=== PATIENT | female | born 1935 | race Caucasian/White ===

== ENCOUNTER → 2017-01-25 | Outpatient (CLI) | payer OTHER, BC ==
--- NOTE | 2017-01-25 11:17 | NOWCEV ---
[facility] EVALUATION AND LETTER OF JUSTIFICATION Patient Name: LUCAS AVALOS Physician: MD Jose Romeo Date: 01/25/17 Therapist: Stella Morales MS,PT Date of : 1935 MR#: [id number] Contact: Subscriber: LUCAS AVALOS Primary Ins: MEDICARE OUTPATIENT Subscriber #: [id number] EVALUATION FINDINGS Medical history - Lucas is an 81y/o female who sustained a T3 incomplete SCI in 1978. 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 Her current MWC is about 10 y/o and is showing age related deterioration. Lucas was referred to this clinic to have recommendations made for the most medically appropriate MWC to meet her needs and to maximize function in her home. Functional Mobility - Lucas is independent to self propel her current [facility] [place] [facility] household distances. She relies on her to push her in her MWC longer distances to the the dining room in the assisted living facility in which they reside. She transfers utilizing a stand pivot strategy with B AFOs donned. She relies heavily on the arms rests of her chair for support and demonstrates poor eccentric control. Lucas is independent with supine to/from sit transitions and rolling. When she lays supine, it takes several minutes for her LLE to relax into fully extension due to increased tone in her L hip flexor. She can ambulate very short distances with a rw, B AFOs and close guard. Her gait has significant B Trendelenburg, B recurvatum and narrow ABELARDO. She primarily weight bears throughout her UEs on the rw. She does not walk functionally, only for exercise. Head/Trunk control - Lucas's head control is WNL. She is able to reach ~2" outside her ABELARDO in unsupported sitting. Motor involvement - Kaileys LLE was more greatly impacted by her SCI than her RLE. MMT is as follows: DF L: 3-/5, R: 3+/5, eversion L: 0/5, R: 4-/5, knee extension L: 3/5, R: 4/5, hip flexion B: 3-/5, hip abduction L: 2-/5, R: 2/5. She has significant tightness in her L adductor and internal rotators. Her hamstring length is greatly restricted, passive supine knee extension measured from 90 degrees hip flexion is gross 95-100 degrees L and 105 degrees R. Lucas 's UE strength is 4-/5 into B shoulder flexion, shoulder abduction and elbow extension. Elbow flexion is 4/5. She does have some spasticity in her L hip flexor. Posture - Lucas sits with a pelvic obliquity in which her L iliac crest is lower than her R and she leans to the L despite padding that was added to her current seat cushion several years back. Her LLE is adducted and internally rotated. She sits with rounded shoulders and has a reduction of normal thoracic and lumbar curves from spinal surgeries. Skin Sensation - Lucas's sensation is diminished to light touch and proprioception below her level of injury at T3. She does not have any h/o skin breakdown as she weight shifts and performs pressure relief regularly. Endurance - Lucas can be in her chair for >8 hours /day. With the current set up of her chair, she can only self propel short household distances and relies on her to propel distance to the dinning room in their assisted living facility. ADLs - Lucas relies on her for activities such as dressing and bathing. She performs activities such as washing and brushing her teeth from a wheelchair level. Cognitive/Social - Lucas lives with her in a wheelchair accessible assisted living facility. She is fully cognizant and able to make her own medical decisions. To attend medical appointments, Lucas's lifts her current MWC into the car. Current wheelchair - Lucas's current MWC (zoomsquareezy 600) is about 10 y/o and is deteriorating from constant daily use. She feels the frame now "wobbles " when she propels. She is currently utilizing a veralite cushion and matrx backrest. Her current cushion is visibly worn and is not providing her with the postural support she needs, causing her to lean to the L when she sits in her chair. MEDICAL and FUNCTIONAL NEED/OBJECTIVES * To replace Lucas's current MWC and seating system which is deteriorating from use, in order to ensure safe and consistent mobility in the home. PRIMARY FUNCTIONAL LIMITATION (G Code) * Mobility CURRENT STATUS OF PRIMARY FUNCTIONAL LIMITATION (Severity Modifier) * At least 40 percent but less than 60 percent impaired, limited or restricted ( CK) GOAL STATUS OF PRIMARY FUNCTIONAL LIMITATION (Severity Modifier) * At least 40 percent but less than 60 percent impaired, limited or restricted ( CK) DISCHARGE STATUS OF PRIMARY FUNCTIONAL LIMITATION (Severity Modifier) * At least 40 percent but less than 60 percent impaired, limited or restricted ( CK) EQUIPMENT RECOMMENDATIONS AND JUSTIFICATIONS The following recommendations are believed to be the most cost effective way to meet the patients medical and functional needs. * Ultra light weight folding frame MWC: Needed to replace Lucas's current MWC which is 10years old and showing age related deterioration. An ultra light weight frame is necessary, because it will allow Lucas to continue to self propel her chair as she ages both on level surfaces and ramps within her home. A platform builder chair will also allow her to be more independent, as she will be able to self propel to the dining room in her assisted living facility without requiring caregiver assistance to push her. Additionally, a platform builder chair will allow Lucas's /caregiver, who is also aging, with the ability to lift her MWC in/out of the car to attend medical appointments with decreased risk of injury. Lucas is unable to walk to perform functional tasks or ADLs even with an AD. With a standard weight chair, Lucas will be unable to self propel distances within her home or to the dining area in her assisted living facility and will be unable to self propel up ramps. Therefore an ultra light weight chair is warranted. * Skin protection positioning cushion (Veralite): Needed to provide Lucas with appropriate pressure relief and distribution as she spends long periods of time in her chair throughout the day. Additionally it is required to correct for Lucas's pelvic obliquity which causes her to sit with a L lateral lean if not compensated for This will improve her ability to independently self propel her MWC within the assisted living facility where she resides. An off the shelf cushion will not be able to accommodate her pelvic obliquity or provide her with the postural stability required to propel. * Posterior positioning backrest (Matrx): Needed to provide Lucas with postural support and control to maximize her ability to self propel. It will work in conjunction with her custom cushion to provide pressure relief. * Airless tire inserts: Needed as Lucas is unable to perform maintenance on chair, such as filling tires or changing flat tires, due to her physical limitations. * Push to lock brakes: Needed for easy access to brakes so Lucas can independently secure her chair prior to transferring and performing ADLs from a wheelchair level. * Anti-tippers: Needed to provide safety to prevent Lucas's chair from flipping over backward when propelling up ramps or performing ADLs. * Heel loops: Needed to maintain the positioning of Lucas's feet and LEs on the foot plates, and to ensure safety and stability when self propelling as she does not have the LE strength to maintain this position independently. * Height adjustable arm rests: The elevated height of the arm rest is needed to improve Lucas's leverage and stability when completing transfers. These recommendations are based on the likelihood that Lucas will require the use of a wheelchair for mobility for the rest of her life. If you have any questions or concerns regarding the stated recommendations, please feel free to contact the therapist at . Thank you for your cooperation in obtaining the necessary equipment for this patient. FIORELLA Herrera
== END ==
PROVIDERS: ATTEND Internal Medicine
DX: Z46.89 Encounter for fitting and adjustment of other specified devices (principal); G82.22 Paraplegia, incomplete
CPT/HCPCS: 97162; G8978; G8979; G8980

== ENCOUNTER 2019-02-02 14:53 | Emergency (ER) | payer OTHER, BC ==
--- NOTE | 2019-02-02 15:19 | EDPHY ---
H & P Stated Complaint: rectal bleeding Time Seen by Provider: 02/02/19 15:19 - Personal History Current Tetanus/Diphtheria Vaccine: Unsure Current Tetanus Diphtheria and Acellular Pertussis (TDAP): Unsure Tetanus Vaccine Date: 8 years ago - Medical/Surgical History Hx Asthma: No Hx Chronic Respiratory Disease: No Hx Diabetes: No Hx Cardiac Disease: No Hx Renal Disease: No Hx Cirrhosis: No Hx Alcoholism: No Hx HIV/AIDS: No Hx Splenectomy or Spleen Trauma: No Other PMH: Medical- Partial paraplegia (traumatic), GERD. Surgical- Back surg w /hardware.VTE 5 years ago - Social History Smoking Status: Never smoked Constitutional: Initial Vital Signs Temperature (C) 36.7 C 02/02/19 14:59 Heart Rate 78 02/02/19 14:59 Respiratory Rate 16 02/02/19 14:59 Blood Pressure 165/73 H 02/02/19 14:59 O2 Sat (%) 96 02/02/19 14:59 O2 Delivery Mode Room Air Allergies/Adverse Reactions: Sulfa (Sulfonamide Antibiotics) Allergy (Severe, Verified 02/02/19 14:58) Rash Home Medications: Medication Instructions Recorded Bisacodyl [Dulcolax Rectal (OTC)] 10 mg HI DAILY PRN 11/05/13 Magnesium Hydroxide [Milk of 30 ml PO DAILY PRN 11/05/13 Magnesia (OTC)] Multivitamins [Tab-A-Fara] 1 tab PO DAILY 11/05/13 Rabeprazole Sodium [Aciphex] 20 mg PO HS 11/05/13 Sennosides/Docusate Sodium 1 - 2 tab PO BID 11/05/13 [Senokot-S Tablet] Acetaminophen [Tylenol Tablet] 650 mg PO Q4 PRN 11/27/13 Hydrocodone/APAP 5/325 [[place] 1 - 2 tab PO Q4 11/27/13 5/325 (RX)] Mag Hydrox/Al Hydrox/Simeth 30 ml PO Q6 PRN 11/27/13 [Maalox Susp] Polyethylene Glycol 3350 [Miralax 17 gm PO DAILY PRN 11/27/13 17 gm (OTC)] Warfarin Sodium [Coumadin 1MG (RX)] 1 mg PO DAILY16 11/27/13 guaiFENesin [Robitussin 200 MG 200 mg PO Q4PRN PRN 11/27/13 (OTC)] Medical Decision Making ED Course/Re-evaluation: CHIEF COMPLAINT: Rectal bleeding HISTORY OF PRESENT ILLNESS: The patient is an anticoagulated (Coumadin) 83 y/o female with a history of partial paraplegia and hemorrhoids complaining of bright red rectal bleeding. Several months ago she started taking Miralax frequently, which has caused irregular and soft bowel movements. Today she developed the bright red rectal bleeding that was present when she was taking a bowel movement today. No fever, headache, body aches, lightheadedness, chest pain, heart palpitations, shortness of breath, cough, abdominal pain, urinary complaints, paresthesias. REVIEW OF SYSTEMS: A comprehensive 10 system review of systems is otherwise negative aside from elements mentioned in the history of present illness and medical decision making. PHYSICAL EXAM: HR, BP, O2 Sat, RR. Temp noted General Appearance: Alert, well hydrated, appropriate, and non-toxic appearing. Head: Atraumatic without scalp tenderness or obvious injury Eyes: Pupils equal, round, reactive to light and accommodation, EOMI, no trauma , no injection. Ears: Clear bilaterally, no perforation, normal landmarks Nose: Atraumatic, no rhinorrhea, clear. Throat: There is no erythema or exudates, no lesions, normal tonsils, mucus membranes moist. Neck: Supple, 2+ carotid upstroke, nontender, no lymphadenopathy. Respiratory: No retractions, no distress, no wheezes, and no accessory muscle use. Lungs are clear to auscultation bilaterally. Cardiovascular: Regular rate and rhythm, no murmurs, rubs, or gallops. Bilateral carotid, radial, dorsalis pedis, and posterior tibial pulses intact. Good capillary refill all extremities. Gastrointestinal: Abdomen is soft, nontender, non-distended, no masses, no rebound, no guarding, no peritoneal signs. Rectal: Many skin tags and hemorrhoids. No gush of blood. Musculoskeletal: Normal active ROM of all extremities, atraumatic. Neurological: Alert, appropriate, and interactive. The patient has normal DTRs and non-focal cranial nerves, motor, sensory, and cerebellar exam. Skin: No rashes, good turgor, no nodules on palpation. Past medical history: Partial paraplegia (traumatic), GERD, frequent UTI's, hemorrhoids, DVT's (on Coumadin) Past surgical history: Back surgery w/hardware, VTE 5 years ago Family history: Not indicated. Social history: Lives in [place], , retired DIAGNOSTICS/PROCEDURES/CRITICAL CARE TIME: Not indicated. DIFFERENTIAL DIAGNOSIS: The differential diagnosis for the patient's lower GI bleeding included but was not limited to diverticulosis, tumor, AVM, hemorrhoid, and upper GI Bleed. MEDICAL DECISION MAKING: The patient is an anticoagulated (Coumadin) 83 y/o female with a history of partial paraplegia and hemorrhoids presenting of bright red rectal bleeding. Several months ago she started taking Miralax frequently, which has caused irregular and soft bowel movements. Today she developed the bright red rectal bleeding that was present even when she wasn't taking a bowel movement. No fever , headache, body aches, lightheadedness, chest pain, heart palpitations, 1622: Patient's labs are unremarkable. 1624: Reassessed patient and discussed laboratory findings. I have advised her to follow up with a manager engagement and use OTC Anusol cream. Return precautions provided; patient is comfortable with this plan. - Data Points Laboratory Results: Laboratory Results 02/02/19 15:45 02/02/19 15:45 02/02/19 02/02/19 02/02/19 15:51 15:45 15:45 WBC RBC Hgb POC Hgb 14.6 gm/dL gm/dL (12.6-16.3) Hct POC Hct 43 % % (38-47) MCV MCH MCHC RDW Plt Count MPV Neut % (Auto) Lymph % (Auto) Placer % (Auto) Eos % (Auto) Baso % (Auto) Nucleat RBC Rel Count Absolute Neuts (auto) Absolute Lymphs (auto) Absolute Monos (auto) Absolute Eos (auto) Absolute Basos (auto) Absolute Nucleated RBC Immature Gran % Immature Gran # PT 23.7 SEC H SEC (12.0-15.0) INR 2.24 H (0.83-1.16) APTT 31.7 SEC SEC (23.0-38.0) POC Sodium 135 mEq/L mEq/L (135-145) Sodium 133 mEq/L L mEq/L (135-145) POC Potassium 4.4 mEq/L mEq/L (3.3-5.0) Potassium 4.3 mEq/L mEq/L (3.5-5.2) POC Chloride 97 mEq/L mEq/L (97-110) Chloride 97 mEq/L mEq/L (97-110) Carbon Dioxide 26 mEq/l mEq/l (22-31) POC Total CO2 28 mEq/L mEq/L (22-31) Anion Gap 10 mEq/L mEq/L (6-14) POC BUN 10 mg/dL mg/dL (7-23) BUN 12 mg/dL mg/dL (7-23) Creatinine 0.8 mg/dL mg/dL (0.6-1.0) POC Creatinine 0.8 mg/dL mg/dL (0.6-1.0) Estimated GFR > 60 Glucose 91 mg/dL mg/dL (70-100) POC Glucose 91 mg/dL mg/dL (70-100) Calcium 9.4 mg/dL mg/dL (8.5-10.4) Stool Occult Bld Scrn 02/02/19 02/02/19 15:45 15:32 WBC 5.55 10^3/uL 10^3/uL (3.80-9.50) RBC 4.57 10^6/uL 10^6/uL (4.18-5.33) Hgb 14.3 g/dL g/dL (12.6-16.3) POC Hgb Hct 40.9 % % (38.0-47.0) POC Hct MCV 89.5 fL fL (81.5-99.8) MCH 31.3 pg pg (27.9-34.1) MCHC 35.0 g/dL g/dL (32.4-36.7) RDW 12.7 % % (11.5-15.2) Plt Count 255 10^3/uL 10^3/uL (150-400) MPV 11.1 fL fL (8.7-11.7) Neut % (Auto) 58.9 % % (39.3-74.2) Lymph % (Auto) 26.3 % % (15.0-45.0) Placer % (Auto) 11.2 % % (4.5-13.0) Eos % (Auto) 2.7 % % (0.6-7.6) Baso % (Auto) 0.7 % % (0.3-1.7) Nucleat RBC Rel Count 0.0 % % (0.0-0.2) Absolute Neuts (auto) 3.27 10^3/uL 10^3/uL (1.70-6.50) Absolute Lymphs (auto) 1.46 10^3/uL 10^3/uL (1.00-3.00) Absolute Monos (auto) 0.62 10^3/uL 10^3/uL (0.30-0.80) Absolute Eos (auto) 0.15 10^3/uL 10^3/uL (0.03-0.40) Absolute Basos (auto) 0.04 10^3/uL 10^3/uL (0.02-0.10) Absolute Nucleated RBC 0.00 10^3/uL 10^3/uL (0-0.01) Immature Gran % 0.2 % % (0.0-1.1) Immature Gran # 0.01 10^3/uL 10^3/uL (0.00-0.10) PT INR APTT POC Sodium Sodium POC Potassium Potassium POC Chloride Chloride Carbon Dioxide POC Total CO2 Anion Gap POC BUN BUN Creatinine POC Creatinine Estimated GFR Glucose POC Glucose Calcium Stool Occult Bld Scrn POSITIVE H (NEGATIVE) Point of Care Test Results: Chemistry 02/02/19 15:51 POC Sodium 135 mEq/L mEq/L (135-145) POC Potassium 4.4 mEq/L mEq/L (3.3-5.0) POC Chloride 97 mEq/L mEq/L (97-110) POC Total CO2 28 mEq/L mEq/L (22-31) POC BUN 10 mg/dL mg/dL (7-23) POC Creatinine 0.8 mg/dL mg/dL (0.6-1.0) POC Glucose 91 mg/dL mg/dL (70-100) ISTAT H&H 02/02/19 15:51 POC Hgb 14.6 gm/dL gm/dL (12.6-16.3) POC Hct 43 % % (38-47) Departure - Departure Disposition: Home, Routine, Self-Care Clinical Impression: Hemorrhoids Qualifiers: Hemorrhoid type: other Qualified Code(s): K64.8 - Other hemorrhoids Condition: Good Instructions: Hemorrhoids (ED), Rectal Bleeding (ED) Additional Instructions: 1. Follow-up with your primary doctor and manager engagement within 72 hours. 2. Return to the Emergency Department for fever, chest pain, shortness of breath , increasing pain or other worsening of condition. 3. Buy Anusol HC over the counter for the hemorrhoids. Referrals: Eli Perry MD [Primary Care Provider] - As per Instructions Hong Boo MD [Medical Doctor] - As per Instructions Report Scribed for: Leroy Hobbs Report Scribed by: Rafaela Fabian Date of Report: 02/02/19 Time of Report: 15:23
[2019-02-02 15:55] LABS: PLATELET COUNT 255 10^3/uL (150-400)
[2019-02-02 16:04] LABS: INR 2.24 (0.83-1.16); PROTIME(PATIENT) 23.7 SEC (12.0-15.0)
[2019-02-02 16:42] VITALS: BP 144/91
== END 2019-02-02 16:43 | disposition home or self-care (01) ==
DX: K64.8 Other hemorrhoids (principal); G82.22 Paraplegia, incomplete; Z86.718 Personal history of other venous thrombosis and embolism; Z79.01 Long term (current) use of anticoagulants
CPT/HCPCS: 82435-PO; 82565-PO; 82947-PO; 84132-PO; 84295-PO; 84520-PO; 85014-ER